=== PATIENT | female | born 1955 | race Hispanic/Latino ===

== ENCOUNTER 2016-11-04 11:07 | Emergency (ER) | payer OTHER ==
[2016-11-04 11:08] VITALS: BMI 36.6
[2016-11-04 11:45] VITALS: TEMP 97.8
[2016-11-04] MEDS ORDERED: Penicillin G Benzathine 1.2 Mill Unit/2 ml Syr IM STA (12:08)
--- NOTE | 2016-11-04 12:13 | ED PDOC ---
Arrival/HPI - General Chief Complaint: Flu-like Symptoms Time Seen by Provider: 11/04/16 12:07 - History of Present Illness Narrative History of Present Illness (Text): 11/04/16 12:15 61yo female with 2-3 day duration fevers, bodyaches, sore throat. Denies cough, denies n/v, denies abd pain. Denies cp/sob/snyder. No relieving or exacerbating symptoms. States she is able to tolerate PO. Past Medical History - Provider Review Nursing Documentation Reviewed: Yes - Infectious Disease Hx of Infectious Diseases: None - Cardiac Hx Cardiac Disorders: No - Pulmonary Hx Respiratory Disorders: Yes Hx Asthma: Yes - Neurological Hx Neurological Disorder: No - HEENT Hx HEENT Disorder: No - Renal Hx Renal Disorder: No - Endocrine/Metabolic Hx Endocrine Disorders: No - Hematological/Oncological Other/Comment: rheumatic fever as child - Integumentary Hx Dermatological Disorder: No - Musculoskeletal/Rheumatological Hx Musculoskeletal Disorders: No - Gastrointestinal Hx Gastrointestinal Disorders: Yes Hx Gastroesophageal Reflux: Yes - Genitourinary/Gynecological Hx Genitourinary Disorders: No - Psychiatric Hx Psychophysiologic Disorder: No Hx Substance Use: No - Surgical History Other/Comment: right ovary and fallopian tube removed, right foot surgery ( bunion) - Anesthesia Hx Anesthesia: Yes Hx Anesthesia Reactions: No Hx Malignant Hyperthermia: No - Suicidal Assessment Feels Threatened In Home Enviroment: No Family/Social History Family/Social History: No Known Family HX Smoking Status: Light Smoker < 10 Cigarettes Daily Hx Alcohol Use: Yes Frequency of alcohol use: Socially Hx Substance Use: No Allergies/Home Meds Allergies/Adverse Reactions: Allergies No Known Allergies Allergy (Verified 11/04/16 11:42) Home Medications: Home Meds Medication Instructions Recorded Confirmed Albuterol HFA [Albuterol] 0.09 mg IH PRN PRN 06/04/12 11/04/16 Physical Exam - Physical Exam Narrative Physical Exam (Text): 11/04/16 12:11 - Review of Systems Constitutional: Fevers. absent: Fatigue, Weight Change Eyes: Normal ENT: sore throat, denies tristhmus Respiratory: Normal. absent: SOB, Cough, Sputum Cardiovascular: absent: Chest Pain, Palpitations, Syncope Gastrointestinal: Normal. absent: Abdominal Pain, Diarrhea, Nausea, Vomiting Genitourinary: Normal. absent: Dysuria, Frequency, Hematuria, vaginal bleeding Musculoskeletal: Body aches. absent: Back Pain, Neck Pain Skin: no rashes, no erythema Neurological: absent: Focal Weakness Endocrine: Normal Hemo/Lymphatic: Normal Psychiatric: No suicidal or homicidal ideations - Physical exam Patient appears age appropriate, speaking full sentences without difficulty - Systems Exam Head: Present: Atraumatic, Normocephalic Pupils: Present: PERRL Extraocular Muscles: Present: EOMI Conjunctiva: Present: Normal ENT: Erythematous posterior pharynx, swollen symmetrical tonsils with exudates. No uvular deviation. No pain with hyoid manipulation, No muffled voice, no floor of mouth pain or elevation Mouth: Present: Moist Mucous Membranes Neck: Present: Normal Range of Motion. No: MIDLINE TENDERNESS, Paraspinal Tenderness Respiratory/Chest: Present: Clear to Auscultation, Good Air Exchange. No: Respiratory Distress, Accessory Muscle Use, Tachypneic Cardiovascular: Present: Regular Rate and Rhythm, Normal S1, S2, Peripheral Pulses Present. No: Murmurs Abdomen: Present: Normal Bowel Sounds, No: Tenderness, Peritoneal Signs, Rebound, Guarding, Distention Back: Present: Normal Inspection. No: Midline Tenderness, Paraspinal Tenderness Upper Extremity: Present: Normal Inspection. No: Cyanosis, Edema Lower Extremity: Present: Normal Inspection. No: Edema Neurological: Present: GCS=15, Speech Normal, cranial nerves II through XII fully intact with no cerebellar abnormality, neuro-sensory fully intact. No focal neurological deficits. Skin: Present: Warm, Dry, Normal Color. No: Rashes Lymphatic: Present: OX3, NI, NC Psychiatric: Present: Alert, Oriented x 3, Normal Insight, Normal Concentration Vital Signs Reviewed: Yes Vital Signs Temp Pulse Resp BP Pulse Ox 11/04/16 11:44 97.8 F 99 H 17 120/54 L 95 Temperature: Afebrile Blood Pressure: Normal Pulse: Regular Respiratory Rate: Normal Appearance: Positive for: Well-Appearing Pain Distress: None Mental Status: Positive for: Alert and Oriented X 3 Medical Decision Making ED Course and Treatment: 11/04/16 12:14 61yo female with 2 days duration fevers, sore throat, body aches. Swollen tonsils with exudates on exam. No other acute findings. Pt has no diff. swallowing or tristhmus. decadron and pen IM ordered. pt in no distress, states she feels comfortable being dc'd home with outpatient f/u Pt states she understands to return to the ER right away for new or worsening symptoms or for inability to f/u with PMD or specialist as instructed. Patient states that she fully agrees with and understands discharge instructions. States that she agrees with the plan and disposition. Verbalized and repeated discharge instructions and plan. I have given the patient opportunity to ask any additional questions. - Medication Orders Current Medication Orders: Dexamethasone (Decadron Inj) 10 mg IM STAT STA Stop: 11/04/16 12:09 Penicillin G Benzathine (Bicillin L-A Inj) 1,200,000 units IM STAT STA PRN Reason: Protocol Stop: 11/04/16 12:09 Disposition/Present on Arrival - Present on Arrival Any Indicators Present on Arrival: No History of DVT/PE: No History of Uncontrolled Diabetes: No Urinary Catheter: No History of Decub. Ulcer: No History Surgical Site Infection Following: None - Disposition Have Diagnosis and Disposition been Completed?: Yes Diagnosis: Sore throat Disposition: HOME/ ROUTINE Disposition Time: 12:10 Patient Plan: Discharge Condition: GOOD Discharge Instructions (ExitCare): Tonsillitis (ED) Additional Instructions: PLEASE RETURN TO THE EMERGENCY DEPARTMENT FOR NEW OR WORSENING SYMPTOMS. RETURN RIGHT AWAY IF YOU CANNOT FOLLOW UP WITH YOUR PRIMARY CARE DOCTOR, CLINIC, OR SPECIALIST IN 1-2 DAYS. Referrals: Bob Nguyen DO [Staff Provider] - Follow up with primary Forms: WORK NOTE
[2016-11-04 23:29] VITALS: BP 121/70; PULSE 95; RESP 16; O2SAT 96
== END 2016-11-04 13:08 | disposition home or self-care (01) ==
LOC: ED 11:07
DX: J02.9 Acute pharyngitis, unspecified (principal); Z72.0 Tobacco use
CPT/HCPCS: 96372; 99283; J0561; J1100

== ENCOUNTER 2018-01-12 09:21 | Emergency (ER) | payer OTHER ==
[2018-01-12 09:22] VITALS: BMI 36.6
[2018-01-12 09:30] VITALS: TEMP 98.1
--- NOTE | 2018-01-12 09:59 | ED PDOC ---
Arrival/HPI - General Chief Complaint: Lower Extremity Problem/Injury Time Seen by Provider: 01/12/18 09:46 Historian: Patient - History of Present Illness Narrative History of Present Illness (Text): 01/12/18 09:57 62yo female with PMHx of Asthma who present with complaint of worsening right knee pain x months. Notes that the pain recently started radiating to the back of her knee. States she have never seen a Doctor for the knee pain. She takes Tylenol for the pain with mild relieve. She denies trauma, LE edema, recent surgery/travel, chest pain, SOB, diaphoresis, swelling, redness, any other complaint. Past Medical History - Provider Review Nursing Documentation Reviewed: Yes - Infectious Disease Hx of Infectious Diseases: None - Cardiac Hx Cardiac Disorders: No - Pulmonary Hx Respiratory Disorders: Yes Hx Asthma: Yes - Neurological Hx Neurological Disorder: No - HEENT Hx HEENT Disorder: No - Renal Hx Renal Disorder: No - Endocrine/Metabolic Hx Endocrine Disorders: No - Hematological/Oncological Hx Blood Disorders: Yes Other/Comment: rheumatic fever as child - Integumentary Hx Dermatological Disorder: No - Musculoskeletal/Rheumatological Hx Musculoskeletal Disorders: No - Gastrointestinal Hx Gastrointestinal Disorders: Yes Hx Gastroesophageal Reflux: Yes - Genitourinary/Gynecological Hx Genitourinary Disorders: No - Psychiatric Hx Psychophysiologic Disorder: No Hx Substance Use: No - Surgical History Other/Comment: right ovary and fallopian tube removed, right foot surgery ( bunion) - Anesthesia Hx Anesthesia: Yes Hx Anesthesia Reactions: No Hx Malignant Hyperthermia: No - Suicidal Assessment Feels Threatened In Home Enviroment: No Family/Social History - Physician Review Nursing Documentation Reviewed: Yes Family/Social History: Unknown Family HX Smoking Status: Light Smoker < 10 Cigarettes Daily Hx Alcohol Use: No Hx Substance Use: No Allergies/Home Meds Allergies/Adverse Reactions: Allergies No Known Allergies Allergy (Verified 01/12/18 09:25) Home Medications: Home Meds Medication Instructions Recorded Confirmed Albuterol HFA [Albuterol] 0.09 mg IH PRN PRN 06/04/12 01/12/18 Omeprazole [Omeprazole] 40 mg PO DAILY 01/12/18 01/12/18 Review of Systems - Physician Review All systems were reviewed & negative as marked: Yes - Review of Systems Constitutional: Normal Eyes: Normal ENT: Normal Respiratory: Normal Cardiovascular: Normal Gastrointestinal: Normal Genitourinary Female: Normal Musculoskeletal: Arthralgias (Right knee) Skin: Normal Neurological: Normal Endocrine: Normal Hemo/Lymphatic: Normal Psychiatric: Normal Physical Exam Vital Signs Reviewed: Yes Vital Signs Temp Pulse Resp BP Pulse Ox 01/12/18 09:26 98.1 F 96 H 17 129/78 95 Temperature: Afebrile Blood Pressure: Normal Pulse: Regular Respiratory Rate: Normal Appearance: Positive for: Well-Appearing, Non-Toxic, Comfortable Pain Distress: None Mental Status: Positive for: Alert and Oriented X 3 - Systems Exam Head: Present: Atraumatic, Normocephalic Pupils: Present: PERRL Extroacular Muscles: Present: EOMI Conjunctiva: Present: Normal Mouth: Present: Moist Mucous Membranes Neck: Present: Normal Range of Motion Respiratory/Chest: Present: Clear to Auscultation, Good Air Exchange. No: Respiratory Distress, Accessory Muscle Use Cardiovascular: Present: Regular Rate and Rhythm, Normal S1, S2. No: Murmurs Abdomen: No: Tenderness, Distention, Peritoneal Signs Back: Present: Normal Inspection Upper Extremity: Present: Normal Inspection. No: Cyanosis, Edema Lower Extremity: Present: NORMAL PULSES, Normal ROM (With pain of full flexion) , Tenderness (Medial aspect of right knee), Neurovascularly Intact. No: Edema, CALF TENDERNESS, Swelling, Erythema, Temperature Abnormalties Neurological: Present: GCS=15, CN II-XII Intact, Speech Normal Skin: Present: Warm, Dry, Normal Color. No: Rashes Psychiatric: Present: Alert, Oriented x 3, Normal Insight, Normal Concentration Medical Decision Making ED Course and Treatment: 01/12/18 11:10 62yo female in ED for right knee pain that radiates posteriorly. Her pain was controlled with medication in ED. Doppler US was ordered to r/o DVT secondary to pt's posterior knee pain PEr US tech - Us is negative for DVT Right knee xray - Mild joint narrowing on medial aspect, otherwise unremarkable Result was DW the pt. Ibuprofen rx was given. She was referred to ortho. - RAD Interpretation Radiology Orders: 01/12/18 09:53 KNEE RIGHT 2 VIEWS (AP & LAT) [RAD] Stat DUPLEX LOWER EXTRM VEIN RIGHT [US] Stat - Medication Orders Current Medication Orders: Discontinued Medications Ketorolac Tromethamine (Toradol) 60 mg IM STAT STA Stop: 01/12/18 09:55 Last Admin: 01/12/18 10:06 Dose: 60 mg MAR Pain Assessment Document 01/12/18 10:06 OZIEL (Rec: 01/12/18 10:06 OZIEL [id number]) Pain Reassessment Is this a pain reassessment? No Sleep Is patient sleeping during reassessment? No Presence of Pain Presence of Pain Yes Description Description Intermittent IM Administration Charges Document 01/12/18 10:06 OZIEL (Rec: 01/12/18 10:06 OZIEL [id number]) Charges for Administration # of IM Administrations 1 Disposition/Present on Arrival - Present on Arrival Any Indicators Present on Arrival: No History of DVT/PE: No History of Uncontrolled Diabetes: No Urinary Catheter: No History of Decub. Ulcer: No History Surgical Site Infection Following: None - Disposition Have Diagnosis and Disposition been Completed?: Yes Diagnosis: Knee pain Disposition: HOME/ ROUTINE Disposition Time: 11:10 Patient Plan: Discharge Condition: STABLE Discharge Instructions (ExitCare): Chronic Knee Pain Additional Instructions: Take medication and follow up with orthopedist Return to ED for any new symptoms Prescriptions: Ibuprofen [Motrin Tab] 600 mg PO Q6 #20 tab Referrals: Nicolasa Mariano MD [Staff Provider] - Follow up with primary Forms: [employer] (Slovak)
--- NOTE | 2018-01-12 10:58 | RAD ---
PROCEDURE: Right Knee Radiographs. HISTORY: knee pain COMPARISON: None. FINDINGS: BONES: Normal. No fracture. JOINTS: Normal. No osteoarthritis. JOINT EFFUSION: None. OTHER FINDINGS: None. IMPRESSION: Normal radiographs of the right knee.
--- NOTE | 2018-01-12 11:11 | US ---
PROCEDURE: Right lower extremity venous US HISTORY: Leg pain and swelling. Evaluate for DVT. PHYSICIAN(S): Cristiano Lofton M.D. TECHNIQUE: Duplex sonography and color-flow Doppler with graded compression were used to evaluate the deep venous system of the right lower extremity. FINDINGS: The visualized deep venous system of the right lower extremity is sonographically normal and compressible. Normal waveforms and augmentation are seen. There is no sonographic evidence for deep venous thrombosis in the visualized segments of the right lower extremity. IMPRESSION: 1. No sonographic evidence for deep venous thrombosis in the visualized segments of the right lower extremity.
[2018-01-12 12:26] VITALS: BP 140/80; PULSE 80; RESP 16; O2SAT 99
== END 2018-01-12 11:30 | disposition home or self-care (01) ==
LOC: ED 09:21
DX: M25.561 Pain in right knee (principal)
CPT/HCPCS: 73560; 93971; 96372; 99283; J1885

== ENCOUNTER 2018-05-22 15:18 | Emergency (ER) | payer OTHER ==
--- NOTE | 2018-05-22 15:27 | ED PDOC ---
Arrival/HPI - General Time Seen by Provider: 05/22/18 15:27 Historian: Patient - History of Present Illness Narrative History of Present Illness (Text): 05/22/18 15:27 A 62 year old female, a current smoker, whose past medical history includes asthma, presents to the emergency department for difficult breathing since earlier today. Patient reports using her nebulizer and inhaler today to no relief. Patient reports she took tyenol at 10 o'clock today and her nebulizer but experienced difficulty breathing with associated productive cough and post nasal drip. Patient reports taking steroids 2 months ago as a treatment for wheezing. Patient denies any fever, chills, shortness of breath, chest pain, diarrhea, nausea, vomiting, urinary symptoms, back pain, neck pain, headache, dizziness, or any other complaints. PMD: Dr. Whitley Time/Duration: Other (yesterday) Symptom Onset: Gradual Symptom Course: Unchanged Activities at Onset: Light Context: Home Past Medical History - Provider Review Nursing Documentation Reviewed: Yes - Infectious Disease Hx of Infectious Diseases: None - Cardiac Hx Cardiac Disorders: No - Pulmonary Hx Respiratory Disorders: Yes Hx Asthma: Yes - Neurological Hx Neurological Disorder: No - HEENT Hx HEENT Disorder: No - Renal Hx Renal Disorder: No - Endocrine/Metabolic Hx Endocrine Disorders: No - Hematological/Oncological Hx Blood Disorders: Yes Other/Comment: rheumatic fever as child - Integumentary Hx Dermatological Disorder: No - Musculoskeletal/Rheumatological Hx Musculoskeletal Disorders: No - Gastrointestinal Hx Gastrointestinal Disorders: Yes Hx Gastroesophageal Reflux: Yes - Genitourinary/Gynecological Hx Genitourinary Disorders: No - Psychiatric Hx Psychophysiologic Disorder: No Hx Substance Use: No - Surgical History Other/Comment: right ovary and fallopian tube removed, right foot surgery (bunion) - Anesthesia Hx Anesthesia: Yes Hx Anesthesia Reactions: No Hx Malignant Hyperthermia: No - Suicidal Assessment Feels Threatened In Home Enviroment: No Family/Social History - Physician Review Nursing Documentation Reviewed: Yes Family/Social History: Unknown Family HX Smoking Status: Light Smoker < 10 Cigarettes Daily Hx Alcohol Use: No Hx Substance Use: No Allergies/Home Meds Allergies/Adverse Reactions: Allergies No Known Allergies Allergy (Verified 01/12/18 09:25) Home Medications: Home Meds Medication Instructions Recorded Confirmed Albuterol HFA [Albuterol] 0.09 mg IH PRN PRN 06/04/12 01/12/18 Omeprazole 40 mg PO DAILY 01/12/18 01/12/18 Review of Systems - Physician Review All systems were reviewed & negative as marked: Yes - Review of Systems Constitutional: absent: Fevers, Night Sweats ENT: Other (post nasal drip) Respiratory: Cough (+productive cough), Wheezing, Other (Difficulty breathing). absent: SOB Cardiovascular: absent: Chest Pain Gastrointestinal: absent: Diarrhea, Nausea, Vomiting Genitourinary Female: absent: Urine Output Changes Musculoskeletal: absent: Back Pain, Neck Pain Neurological: absent: Headache, Dizziness Physical Exam Vital Signs Reviewed: Yes Temperature: Afebrile Blood Pressure: Normal Pulse: Tachycardic Respiratory Rate: Normal Appearance: Positive for: Well-Appearing, Non-Toxic, Comfortable Pain Distress: None Mental Status: Positive for: Alert and Oriented X 3 - Systems Exam Head: Present: Atraumatic, Normocephalic Pupils: Present: PERRL Extroacular Muscles: Present: EOMI Conjunctiva: Present: Normal Mouth: Present: Moist Mucous Membranes Neck: Present: Normal Range of Motion Respiratory/Chest: Present: Good Air Exchange, Wheezes (+diffuse mild expiratory wheezing), Rhonchi (+scattered ronchi), Other (+speaking full sentences). No: Clear to Auscultation, Respiratory Distress, Rales, Retracting Cardiovascular: Present: Regular Rate and Rhythm, Normal S1, S2. No: Murmurs Abdomen: No: Tenderness, Distention, Peritoneal Signs Back: Present: Normal Inspection Upper Extremity: Present: Normal Inspection. No: Cyanosis, Edema Lower Extremity: Present: Normal Inspection. No: Edema Neurological: Present: GCS=15, CN II-XII Intact, Speech Normal Skin: Present: Warm, Dry, Normal Color. No: Rashes Psychiatric: Present: Alert, Oriented x 3, Normal Insight, Normal Concentration Medical Decision Making ED Course and Treatment: 05/22/18 15:40 Impression: 62 year old female presenting to the emergency department complaining of difficulty breathing due to asthma. Plan: -- Duoneb -- Prednisone -- Reassess and disposition Prior Visits: Notes and results from previous visits were reviewed. Progress Notes: 05/22/18 15:29 EKG: Ordered, reviewed, and independently interpreted the EKG. Rate : 100 BPM Rhythm : NSR Interpretation : No ST-segment elevations or depressions, no T-wave inversions, normal intervals. Comparison : No previous EKG for comparison. 05/22/18 15:42 Peak flow was ordered, but there is none available. 05/22/18 17:31 Patient's ultrasound returned negative, Beta quant is positive and is advised to follow up with [facility] center. 05/22/18 17:42 Upon reassessment, patient repots feeling better. Patient's lungs are clear and has good air entry. Patient is ready for discharge. - Scribe Statement The provider has reviewed the documentation as recorded by the Scribe Monica Basurto All medical record entries made by the Scribe were at my direction and personally dictated by me. I have reviewed the chart and agree that the record accurately reflects my personal performance of the history, physical exam, medical decision making, and the department course for this patient. I have also personally directed, reviewed, and agree with the discharge instructions and disposition. Disposition/Present on Arrival - Present on Arrival History of DVT/PE: No History of Uncontrolled Diabetes: No Urinary Catheter: No History Surgical Site Infection Following: None - Disposition Diagnosis: Asthma exacerbation Disposition: HOME/ ROUTINE Disposition Time: 17:42 Patient Problems: Current Active Problems Problem Status Onset Asthma exacerbation Acute Condition: GOOD Discharge Instructions (ExitCare): Asthma, Adult (DC) Additional Instructions: CINDY JENSEN, thank you for letting us take care of you today. Your provider was Maeve Levy MD and you were treated for CANT BREATHE. The emergency medical care you received today was directed at your acute symptoms. If you were prescribed any medication, please fill it and take as directed. It may take several days for your symptoms to resolve. Return to the Emergency Department if your symptoms worsen, do not improve, or if you have any other problems. Please contact your doctor for a follow up appointment in 2 days. Bring any paperwork you were given at discharge with you along with any medications you are taking to your follow up visit. Our treatment cannot replace ongoing medical care by a primary care provider outside of the emergency department. Thank you for allowing the [facility] [employer] team to be part of your care today. Prescriptions: predniSONE [Prednisone] 40 mg PO DAILY #10 tab Referrals: Mai Whitley DO [Primary Care Provider] - Follow up with primary
[2018-05-22 15:36] VITALS: RESP 18; O2SAT 96
[2018-05-22 15:40] VITALS: BMI 37.9
[2018-05-22] MEDS: Albuterol-Ipratrop 3 mg / 0.5 (3 ml) UD IH SCH ×3 (16:01→16:36)
[2018-05-22 18:14] VITALS: BP 136/82; PULSE 95; TEMP 98.3
--- NOTE | 2018-05-22 18:50 | CARD ---
APPROVED REPORT Date of service: 05/22/2018 EKG Measurement Heart [id number] <Conclusion> Normal sinus rhythm Normal ECG
== END 2018-05-22 18:16 | disposition home or self-care (01) ==
LOC: ED 15:18
DX: J45.901 Unspecified asthma with (acute) exacerbation (principal); F17.210 Nicotine dependence, cigarettes, uncomplicated

== ENCOUNTER 2018-11-28 06:16 | Emergency (ER) | payer OTHER ==
[2018-11-28 06:28] VITALS: BMI 37.0
--- NOTE | 2018-11-28 07:52 | ED PDOC ---
Arrival/HPI <Juve Gaston - Last Filed: 11/28/18 09:34> - General Historian: Patient - History of Present Illness Narrative History of Present Illness (Text): Patient is a 63 year old female with past medical history of rheumatic fever, asthma and GERD presenting with chief complaint of sore throat which began this morning. Also admits to myalgias. Patient did not get a flu shot this year. Denies sick contacts, recent travel. Denies fevers, chills, chest pain, shortness of breath, nausea, vomiting, abdominal pain, diarrhea, dysuria. Time/Duration: 1-3 hours Symptom Onset: Sudden Symptom Course: Unchanged Context: Home <Oksana Hartley - Last Filed: 11/28/18 09:39> - General Chief Complaint: Cough, Cold, Congestion Past Medical History - Provider Review Nursing Documentation Reviewed: Yes - Infectious Disease Hx of Infectious Diseases: None - Cardiac Hx Cardiac Disorders: No - Pulmonary Hx Respiratory Disorders: Yes Hx Asthma: Yes - Neurological Hx Neurological Disorder: No - HEENT Hx HEENT Disorder: No - Renal Hx Renal Disorder: No - Endocrine/Metabolic Hx Endocrine Disorders: No - Hematological/Oncological Hx Blood Disorders: Yes Other/Comment: rheumatic fever as child - Integumentary Hx Dermatological Disorder: No - Musculoskeletal/Rheumatological Hx Musculoskeletal Disorders: No - Gastrointestinal Hx Gastrointestinal Disorders: Yes Hx Gastroesophageal Reflux: Yes - Genitourinary/Gynecological Hx Genitourinary Disorders: No - Psychiatric Hx Psychophysiologic Disorder: No Hx Substance Use: No - Surgical History Other/Comment: right ovary and fallopian tube removed, right foot surgery (bunion) - Anesthesia Hx Anesthesia: Yes Hx Anesthesia Reactions: No Hx Malignant Hyperthermia: No - Suicidal Assessment Feels Threatened In Home Enviroment: No <Oksana Hartley - Last Filed: 11/28/18 09:39> Family/Social History - Physician Review Nursing Documentation Reviewed: Yes Family/Social History: No Known Family HX Smoking Status: Light Smoker < 10 Cigarettes Daily Hx Alcohol Use: No Hx Substance Use: No <Oksana Hartley - Last Filed: 11/28/18 09:39> Allergies/Home Meds <Juve Gaston - Last Filed: 11/28/18 09:34> <Oksana Hartley - Last Filed: 11/28/18 09:39> Allergies/Adverse Reactions: Allergies No Known Allergies Allergy (Verified 11/28/18 06:28) Home Medications: Home Meds Medication Instructions Recorded Confirmed Albuterol HFA [Albuterol] 0.09 mg IH PRN PRN 06/04/12 01/12/18 Omeprazole 40 mg PO DAILY 01/12/18 01/12/18 Review of Systems - Physician Review All systems were reviewed & negative as marked: Yes - Review of Systems Eyes: Normal ENT: Sore Throat. absent: Hearing Changes, Tinnitus, Rhinorrhea Respiratory: Normal Cardiovascular: Normal <Oksana Hartley - Last Filed: 11/28/18 09:39> Physical Exam Vital Signs Temp Pulse Resp BP Pulse Ox 11/28/18 08:45 98 F 85 21 124/75 99 11/28/18 06:27 98.4 F 89 18 127/65 95 <Juve Gaston - Last Filed: 11/28/18 09:34> Vital Signs Reviewed: Yes Vital Signs Temp Pulse Resp BP Pulse Ox 11/28/18 06:27 98.4 F 89 18 127/65 95 Temperature: Afebrile Blood Pressure: Normal Pulse: Regular Respiratory Rate: Normal Appearance: Positive for: Well-Appearing, Comfortable Pain Distress: None Mental Status: Positive for: Alert and Oriented X 3 - Systems Exam Head: Present: Atraumatic, Normocephalic Pupils: Present: PERRL Extroacular Muscles: Present: EOMI Conjunctiva: Present: Normal Ears: Present: NORMAL TM Mouth: Present: Moist Mucous Membranes Pharnyx: Present: ERYTHEMA, EXUDATE Neck: No: Lymphadenopathy Respiratory/Chest: Present: Clear to Auscultation, Good Air Exchange. No: R espiratory Distress, Accessory Muscle Use Cardiovascular: Present: Regular Rate and Rhythm, Normal S1, S2. No: Tachycardic Abdomen: Present: Normal Bowel Sounds. No: Tenderness, Distention Lower Extremity: Present: Normal Inspection. No: Edema Neurological: Present: GCS=15, CN II-XII Intact, Speech Normal Skin: Present: Warm, Dry, Normal Color Psychiatric: Present: Alert, Oriented x 3 <Oksana Hartley - Last Filed: 11/28/18 09:39> Medical Decision Making ED Course and Treatment: In agreement with resident note, which includes further HPI details. Patient was seen and evaluated with resident, came up with plan and treatment together. 63 year old female presents complaining of sore throat that began this morning associated with myalgias. Plan: -- Decadron, Lidocaine 2% Viscous, Toradol -- Influenza A B -- Rapid Strep -- Reassess and disposition 11/28/18 08:44 Patient's strep positive. On re-evaluation, patient is in no acute distress. I have discussed the results and plan with the patient, who expresses understanding. Patient in agreement with plan to be discharged home with prescriptions for Amoxicillin and Lidocaine 2% Viscous. Patient is stable for discharge. Patient was instructed to follow up with physician or return if symptoms worsen or new concerning symptoms arise. - Medication Orders Current Medication Orders: Discontinued Medications Dexamethasone (Decadron) 10 mg PO ONCE ONE Stop: 11/28/18 07:46 Last Admin: 11/28/18 08:09 Dose: 10 mg Ketorolac Tromethamine (Toradol) 15 mg IM STAT STA Stop: 11/28/18 08:18 Last Admin: 11/28/18 08:21 Dose: 15 mg MAR Pain Assessment Document 11/28/18 08:21 GMI (Rec: 11/28/18 08:22 GMI [id number]) Pain Reassessment Is this a pain reassessment? Yes Sleep Is patient sleeping during reassessment? No Presence of Pain Presence of Pain Yes Pain Scale Used Protocol: PSCALES Pain Scale Used Numeric Description Description Sharp Intensity of Pain at present 6 Site Observation sorethroat Pain Behavior Facial Grimacing IM Administration Charges Document 11/28/18 08:21 GMI (Rec: 11/28/18 08:22 GMI [id number]) Injection Site MAR Injection Site Left Deltoid Charges for Administration # of IM Administrations 1 Lidocaine HCl (Lidocaine 2% Viscous) 15 ml MM STAT STA Stop: 11/28/18 07:43 Last Admin: 11/28/18 08:11 Dose: 15 ml <Juve Gaston - Last Filed: 11/28/18 09:34> ED Course and Treatment: Impression: 63 year old female with sore throat Plan: - Rapid strep, flu - Dexamethasone - Toradol - Viscous lidocaine - Reassess and disposition Prior Visits: Notes and results from previous visits were reviewed. Progress Notes: 11/28/18 08:50 Labs reviewed and discussed with patient. Patient reports improvement in symptoms. Patient is hemodynamically stable and optimized for discharge to follow up with primary medical doctor. - Medication Orders Current Medication Orders: Ketorolac Tromethamine (Toradol) 15 mg IVP STAT STA Stop: 11/28/18 07:44 Lidocaine HCl (Lidocaine 2% Viscous) 15 ml MM STAT STA Stop: 11/28/18 07:43 <Oksana Hartley - Last Filed: 11/28/18 09:39> Disposition/Present on Arrival <Juve Gaston - Last Filed: 11/28/18 09:34> - Present on Arrival Any Indicators Present on Arrival: No History of DVT/PE: No History of Uncontrolled Diabetes: No Urinary Catheter: No History of Decub. Ulcer: No History Surgical Site Infection Following: None - Disposition Have Diagnosis and Disposition been Completed?: Yes Disposition Time: 08:44 <Oksana Hartley - Last Filed: 11/28/18 09:39> - Disposition Diagnosis: Strep pharyngitis Disposition: HOME/ ROUTINE Condition: STABLE Discharge Instructions (ExitCare): Strep Throat (DC) Additional Instructions: Your rapid strep test was positive, indicating strep throat. Follow up with your primary care doctor within one week Drink plenty of fluids and stay hydrated Return to ED if symptoms worsen Prescriptions: Amoxicillin 500 mg PO BID 10 Days #20 tablet Lidocaine 2% Viscous 15 ml MM Q3H #1 bottle Referrals: Mai Whitley DO [Primary Care Provider] - Follow up with primary Forms: [facility] (Lithuanian), WORK NOTE
[2018-11-28 08:27] LABS: INFLUENZA A B NEGATIVE FOR FLU A/B (NEGATIVE)
[2018-11-28 08:46] VITALS: BP 124/75; PULSE 85; RESP 21; TEMP 98
[2018-11-28 08:49] VITALS: O2SAT 98
== END 2018-11-28 08:47 | disposition home or self-care (01) ==
LOC: ED 06:16
DX: J02.0 Streptococcal pharyngitis (principal); F17.210 Nicotine dependence, cigarettes, uncomplicated
CPT/HCPCS: 87430; 87804; 96372; 99283; J1885; J8540

== ENCOUNTER 2018-12-15 08:40 | Emergency (ER) | payer OTHER ==
[2018-12-15 08:40] VITALS: BMI 37.0
[2018-12-15 09:13] VITALS: O2SAT 99
[2018-12-15] MEDS ORDERED: DIPHENHYDRAMINE PO PRN (09:41)
[2018-12-15] MEDS ORDERED: ALUMINUM HYDROXIDE PO PRN (09:41)
[2018-12-15] MEDS ORDERED: LIDOCAINE 2% PO PRN (09:41)
[2018-12-15] MEDS ORDERED: VISCOUS PO PRN (09:41)
[2018-12-15] MEDS ORDERED: MAGNESIUM PO PRN (09:41)
[2018-12-15] MEDS ORDERED: ALUMINUM HYDROXIDE PO STA ×3 (09:42→09:51)
[2018-12-15] MEDS ORDERED: VISCOUS PO STA ×3 (09:42→09:51)
[2018-12-15] MEDS ORDERED: MAGNESIUM PO STA ×3 (09:42→09:51)
[2018-12-15] MEDS ORDERED: DIPHENHYDRAMINE PO STA ×3 (09:42→09:51)
[2018-12-15] MEDS ORDERED: LIDOCAINE 2% PO STA ×3 (09:42→09:51)
--- NOTE | 2018-12-15 09:48 | ED PDOC ---
Arrival/HPI - General Chief Complaint: ENT Problem Time Seen by Provider: 12/15/18 08:41 Historian: Patient - History of Present Illness Narrative History of Present Illness (Text): 12/15/18 09:47 63 year old F with Strep pharyngitis, asthma and GERD presents with chief complaint of sore throat since last night. Patient reports decreased PO intake due to trouble swallowing and having a sick grandchild at home. Patient mentione d Tylenol did not relieve any pain. Patient denies any fevers, chills, headache, dizziness, chest pain, shortness of breath, dyspnea on exertion, cough, diaphoresis, abdominal pain, nausea, vomiting, diarrhea, back pain, neck pain, or any other complaint. Dr. Whitley Time/Duration: 24 hours Symptom Onset: Sudden Symptom Course: Unchanged Activities at Onset: Light Context: Home Past Medical History - Provider Review Nursing Documentation Reviewed: Yes - Infectious Disease Hx of Infectious Diseases: None - Reproductive Menopause: Yes - Cardiac Hx Cardiac Disorders: No - Pulmonary Hx Respiratory Disorders: Yes Hx Asthma: Yes - Neurological Hx Neurological Disorder: No - HEENT Hx HEENT Disorder: No - Renal Hx Renal Disorder: No - Endocrine/Metabolic Hx Endocrine Disorders: No - Hematological/Oncological Hx Blood Disorders: Yes Other/Comment: rheumatic fever as child - Integumentary Hx Dermatological Disorder: No - Musculoskeletal/Rheumatological Hx Musculoskeletal Disorders: No - Gastrointestinal Hx Gastrointestinal Disorders: Yes Hx Gastroesophageal Reflux: Yes - Genitourinary/Gynecological Hx Genitourinary Disorders: No - Psychiatric Hx Psychophysiologic Disorder: No Hx Substance Use: No - Surgical History Other/Comment: right ovary and fallopian tube removed, right foot surgery (bunion) - Anesthesia Hx Anesthesia: Yes Hx Anesthesia Reactions: No Hx Malignant Hyperthermia: No - Suicidal Assessment Feels Threatened In Home Enviroment: No Family/Social History - Physician Review Nursing Documentation Reviewed: Yes Family/Social History: Unknown Family HX Smoking Status: Light Smoker < 10 Cigarettes Daily Hx Alcohol Use: No Hx Substance Use: No Allergies/Home Meds Allergies/Adverse Reactions: Allergies No Known Allergies Allergy (Verified 11/28/18 06:28) Home Medications: Home Meds Medication Instructions Recorded Confirmed Albuterol HFA [Albuterol] 0.09 mg IH PRN PRN 06/04/12 01/12/18 Omeprazole 40 mg PO DAILY 01/12/18 01/12/18 Review of Systems - Review of Systems Constitutional: absent: Fevers ENT: Sore Throat. absent: Rhinorrhea, Epistaxis Respiratory: absent: SOB, Cough, Wheezing Cardiovascular: absent: Chest Pain, Palpitations Gastrointestinal: absent: Abdominal Pain, Diarrhea, Nausea, Vomiting, Hematochezia, Hematemesis Genitourinary Female: absent: Dysuria, Frequency, Hematuria Musculoskeletal: absent: Arthralgias, Back Pain, Myalgias Skin: absent: Rash, Laceration Neurological: absent: Headache, Dizziness Physical Exam Vital Signs Reviewed: Yes Vital Signs Temp Pulse Resp BP Pulse Ox 12/15/18 09:03 98.4 F 94 H 18 123/74 99 Temperature: Afebrile Blood Pressure: Normal Pulse: Tachycardic Respiratory Rate: Normal Appearance: Positive for: Well-Appearing, Non-Toxic, Comfortable Pain Distress: Mild Mental Status: Positive for: Alert and Oriented X 3 - Systems Exam Head: Present: Atraumatic, Normocephalic Pupils: Present: PERRL Extroacular Muscles: Present: EOMI Conjunctiva: Present: Normal Mouth: Present: Moist Mucous Membranes Pharnyx: Present: ERYTHEMA, TONSILS ENLARGED. No: EXUDATE, Uvular Deviation Neck: Present: Normal Range of Motion Respiratory/Chest: Present: Clear to Auscultation, Good Air Exchange. No: Respiratory Distress, Accessory Muscle Use Cardiovascular: Present: Regular Rate and Rhythm, Normal S1, S2. No: Murmurs Abdomen: No: Tenderness, Distention, Peritoneal Signs Back: Present: Normal Inspection Upper Extremity: Present: Normal Inspection. No: Cyanosis, Edema Lower Extremity: Present: Normal Inspection. No: Edema Neurological: Present: GCS=15, CN II-XII Intact, Speech Normal Skin: Present: Warm, Dry, Normal Color. No: Rashes Lymphatic: No: Cervical Adenopathy Psychiatric: Present: Alert, Oriented x 3, Normal Insight, Normal Concentration Medical Decision Making ED Course and Treatment: 12/15/18 10:01 Impression: 63 year old F presents with chief complaint of sore throat since last night. Plan: -- Throat Culture -- Rapid Strep --Amoxacillin -- Reassess and disposition Prior Visits: Notes and results from previous visits were reviewed. Progress Notes: 12/15/18 10:30 Rapid strep positive for strep pharyngitis. Patient updated on results and advised to follow up with an ENT surgeon. She demonstrates understanding and will follow up. Scripts provided as well as opportunity for questions given and answered. She is stable for discharge. - Lab Interpretations Lab Results: Lab Results 12/15/18 09:30: Grp A Beta Strep Ag Positive H I have reviewed the lab results: Yes - Medication Orders Current Medication Orders: Al Hydrox/Mg Hydrox/Simethicone 20 ml/Diphenhydramine HCl 50 mg/Lidocaine 20 ml 0 ml PO STAT STA Stop: 12/15/18 09:43 Discontinued Medications Al Hydrox/Mg Hydrox/Simethicone 20 ml/Diphenhydramine HCl 50 mg/Lidocaine 20 ml 0 ml PO Q2H PRN PRN Reason: Mouth/Throat Pain - Scribe Statement The provider has reviewed the documentation as recorded by the Chaloibjaya Diaz All medical record entries made by the Scribe were at my direction and personally dictated by me. I have reviewed the chart and agree that the record accurately reflects my personal performance of the history, physical exam, medical decision making, and the department course for this patient. I have also personally directed, reviewed, and agree with the discharge instructions and disposition. Disposition/Present on Arrival - Present on Arrival Any Indicators Present on Arrival: No History of DVT/PE: No History of Uncontrolled Diabetes: No Urinary Catheter: No History of Decub. Ulcer: No History Surgical Site Infection Following: None - Disposition Have Diagnosis and Disposition been Completed?: Yes Diagnosis: Strep pharyngitis Disposition: HOME/ ROUTINE Disposition Time: 10:37 Patient Plan: Discharge Condition: STABLE Discharge Instructions (ExitCare): Strep Throat (DC) Print Language: AMERICAN Additional Instructions: All medical record entries made by the Scribe were at my direction and personally dictated by me. I have reviewed the chart and agree that the record accurately reflects my personal performance of the history, physical exam, medical decision making, and the department course for this patient. I have also personally directed, reviewed, and agree with the discharge instructions and disposition. Please take antibiotics as prescribed Try to follow up with an ENT surgeon or schedule an appointment with the ENT surgeon listed in your paperwork Follow up with your PCP in 1 week Prescriptions: Amoxicillin 500 mg PO Q12 10 Days #20 tab Referrals: Alexandru Thapa DO [Staff Provider] - Follow up with primary Sabi Lantigua MD [Medical Doctor] - Follow up with primary [facility] [place]] - Follow up with primary Forms: [employer] (Japanese), WORK NOTE
[2018-12-15 10:51] VITALS: BP 140/84; PULSE 81; RESP 17; TEMP 97.7
== END 2018-12-15 10:51 | disposition home or self-care (01) ==
LOC: ED 08:40
DX: J02.0 Streptococcal pharyngitis (principal); F17.210 Nicotine dependence, cigarettes, uncomplicated